=== PATIENT | male | born 1935 | race Caucasian/White ===

== ENCOUNTER 2018-07-05 07:45 | Day surgery (SDC) | payer OTHER, MEDICARE ==
[~2018-07-05] VITALS: Ht 180.3 cm; Wt 94.8 kg
[~2018-07-05 07:45] MED LIST: ALBU2.5V5 NEB; AMLO10 PO; ASPI81CH PO; ATOR10 PO; CHOL10002 PO; DOXA4 PO; HYDR1TAB94 PO; Hair, Skin & N1 EACH PO; INSULANPEN SC; LOSA25 PO; Novolog100 UNIT/2 SC; Triamcinolone A15 G2 EXT
--- NOTE | 2018-07-05 08:35 | NUR ---
Ambulatory in Day Surgery-UTILIZING A CANE. History, Chart, Medications and Allergies reviewed before start of procedure.Lungs clear T/O to Auscultation. Patient confirms NPO status and agrees with scheduled surgery. Patient reports completing Chlorhexadine shower X2 prior to admission to hospital.Surgical site prepped with 2% Chlorhexidine cloth wipe. Patient States Post-Procedure ride home has been arranged.
--- NOTE | 2018-07-05 11:06 | NUR ---
DAY SURGERY RN | CALL FROM RADIOLOGY DR. JIN STATES THAT THE MEDIPORT "LOOKS GOOD".
--- NOTE | 2018-07-05 11:39 | NUR ---
Patient up to Ambulate independently. Gait steady. Discharge instructions reviewed with patient. Patient verbalizes understanding. Copy given to patient to take home. Dressing to procedure site clean, dry, intact with no visible drainage, swelling, erythema or bruising noted. Patient States Post-Procedure ride home has been arranged. Discharged via wheelchair to private car for ride home.
== END 2018-07-05 22:44 | disposition home or self-care (01) ==
LOC: ORSCMMR 07:45 → ORD 09:45 → ORSCMMR 09:45
PROVIDERS: Surgery
PROC: 05HM33Z Insertion of Infusion Device into Right Internal Jugular Vein, Percutaneous Approach (ICD-10-PCS; principal; 2018-07-05 09:45)
PROC: B543ZZA Ultrasonography of Right Jugular Veins, Guidance (ICD-10-PCS; principal; 2018-07-05 09:45)
DX: C93.10 Chronic myelomonocytic leukemia not having achieved remission (principal); E11.22 Type 2 diabetes mellitus with diabetic chronic kidney disease; I12.9 Hypertensive chronic kidney disease with stage 1 through stage 4 chronic kidney disease, or unspecified chronic kidney disease; N18.3 Chronic kidney disease, stage 3 (moderate); Z79.4 Long term (current) use of insulin; Z79.82 Long term (current) use of aspirin; Z79.899 Other long term (current) drug therapy
CPT/HCPCS: 77001; 82947; C1788; J0690; J1642; J2405; J3010; J7120

== ENCOUNTER 2020-05-27 00:15 | Day surgery (SDC) | payer OTHER ==
[2020-05-27] MEDS ORDERED: METF500 PO (08:32)
== END 2020-05-27 10:30 | disposition home or self-care (01) ==
LOC: ATC 00:15
PROC: 30233N1 Transfusion of Nonautologous Red Blood Cells into Peripheral Vein, Percutaneous Approach (ICD-10-PCS; principal; 2020-05-27)
DX: C93.10 Chronic myelomonocytic leukemia not having achieved remission (principal); I12.9 Hypertensive chronic kidney disease with stage 1 through stage 4 chronic kidney disease, or unspecified chronic kidney disease; E11.22 Type 2 diabetes mellitus with diabetic chronic kidney disease; N18.30 Chronic kidney disease, stage 3 unspecified; D63.1 Anemia in chronic kidney disease; L40.9 Psoriasis, unspecified; E11.319 Type 2 diabetes mellitus with unspecified diabetic retinopathy without macular edema; E78.5 Hyperlipidemia, unspecified; K59.00 Constipation, unspecified; E11.42 Type 2 diabetes mellitus with diabetic polyneuropathy; Z88.6 Allergy status to analgesic agent; Z88.8 Allergy status to other drugs, medicaments and biological substances; Z87.891 Personal history of nicotine dependence; Z79.01 Long term (current) use of anticoagulants; Z79.82 Long term (current) use of aspirin; Z79.4 Long term (current) use of insulin; Z79.899 Other long term (current) drug therapy; Z86.718 Personal history of other venous thrombosis and embolism
CPT/HCPCS: 36430; 86850; 86900; 86901; 86923; J1642; J7050; P9016

== ENCOUNTER 2021-01-26 09:36 | Emergency (ER) | payer OTHER | END 2021-01-26 12:16 | disposition home or self-care (01) | LOC: ER 09:36 | DX: S01.01XA Laceration without foreign body of scalp, initial encounter (principal); E78.5 Hyperlipidemia, unspecified; I12.9 Hypertensive chronic kidney disease with stage 1 through stage 4 chronic kidney disease, or unspecified chronic kidney disease; E11.22 Type 2 diabetes mellitus with diabetic chronic kidney disease; N18.9 Chronic kidney disease, unspecified; Z88.6 Allergy status to analgesic agent; Z88.8 Allergy status to other drugs, medicaments and biological substances; Z79.4 Long term (current) use of insulin; Z79.899 Other long term (current) drug therapy; W01.10XA Fall on same level from slipping, tripping and stumbling with subsequent striking against unspecified object, initial encounter ==

== ENCOUNTER 2021-07-21 10:42 | Emergency (ER) | payer OTHER ==
[~2021-07-21] VITALS: Ht 180.3 cm; Wt 90.7 kg
[~2021-07-21 10:42] MED LIST changes: +METF500 PO
[2021-07-21 11:33] LABS: BASOPHILS ABSOLUTE AUTO 0.04 K/mm3 (0.00-0.23); BASOPHILS PERCENT AUTO 1 % (0-2); EOSINOPHILS ABSOLUTE AUTO 0.06 K/mm3 (0.00-0.68); EOSINOPHILS PERCENT AUTO 1 % (0-6); Hematocrit 31.4 % (37.0-53.0); Hemoglobin 10.2 g/dL (13.5-17.5); IMMATURE GRAN ABSOLUTE AUTO 0.03 K/mm3 (0.00-0.10); IMMATURE GRAN PERCENT AUTO 0 % (0-1); LYMPHOCYTES ABSOLUTE AUTO 0.75 K/mm3 (0.84-5.20); LYMPHOCYTES PERCENT AUTO 11 % (21-46); MONOCYTES ABSOLUTE AUTO 0.56 K/mm3 (0.16-1.47); MONOCYTES PERCENT AUTO 8 % (4-13); Mean Corpuscular HGB Conc 32.5 g/dL (31.5-36.5); Mean Corpuscular Volume 95 fL (80-100); NEUTROPHILS ABSOLUTE AUTO 5.26 K/mm3 (1.96-9.15); NEUTROPHILS PERCENT AUTO 79 % (41-73); Platelet Count 189 K/mm3 (150-400); RDW Coefficient Variation 13.5 % (11.7-14.2); RDW Standard Deviation 47.7 fL (35.1-46.3); Red Blood Cell Count 3.29 M/mm3 (4.30-5.90)
[2021-07-21 12:05] LABS: Alanine Aminotransfer (ALT/SGP <6 U/L (12-78); Albumin, Blood 2.2 g/dL (3.4-5.0); Albumin/Globulin Ratio 0.4 (0.8-1.8); Alk Phos 112 U/L (50-136); Anion Gap 5 mmol/L (6-16); Aspartate Aminotrans (AST/SGOT 16 U/L (12-37); Bilirubin, Total 0.3 mg/dL (0.1-1.0); Blood Urea Nitrogen 44 mg/dL (8-24); Bun/Creatinine Ratio 25.7 (12.0-20.0); CO2, Blood 30 mmol/L (21-32); Calcium, Blood 8.6 mg/dL (8.5-10.1); Chloride, Blood 99 mmol/L (98-108); Creatinine, Blood 1.71 mg/dL (0.60-1.20); Globulin, Blood 5.2 g/dL (2.2-4.0); Glomerular Filtration Rate 38 (60-); Glucose, Blood 289 mg/dL (70-99); Sodium, Blood 134 mmol/L (136-145); Total Protein, Blood 7.4 g/dL (6.4-8.2)
== END 2021-07-21 16:43 | disposition home or self-care (01) ==
LOC: ER 10:42
PROVIDERS: Physician Assistant
DX: R53.83 Other fatigue (principal); I12.9 Hypertensive chronic kidney disease with stage 1 through stage 4 chronic kidney disease, or unspecified chronic kidney disease; N18.9 Chronic kidney disease, unspecified; E11.9 Type 2 diabetes mellitus without complications; E78.5 Hyperlipidemia, unspecified; Z88.8 Allergy status to other drugs, medicaments and biological substances; Z88.6 Allergy status to analgesic agent; Z87.891 Personal history of nicotine dependence; Z79.4 Long term (current) use of insulin; Z79.84 Long term (current) use of oral hypoglycemic drugs; Z79.899 Other long term (current) drug therapy
CPT/HCPCS: 36415; 71046; 80053; 83605; 85025; 87040; 99284-25

== ENCOUNTER 2023-04-24 13:01 | Inpatient (IN) | payer OTHER ==
[~2023-04-24] VITALS: Ht 177.8 cm; Wt 81.5 kg
[~2023-04-24 13:01] MED LIST changes: +B-COMPLEX WITH1 EAC2 PO; +CALCIUM CARBON650 MG PO; +CENTRUM SILVER1 EAC2 PO; +Calcium Acetat667 MG PO; +ELIQUIS2.5 M1 PO; +FURO40 PO; +HYDR25SUP PR; +IPRATROPIUM BRO15 ML; +NOVOLIN N100 UNIT/2 SC; +PSYSENPA PO; +TAMS.4ER PO; +TIOT18 INH; +VITAMIN D31000 UNI1 PO
[2023-04-24 14:45] VITALS: BP 109/61
[2023-04-24] MEDS ORDERED: METO25 PO (15:28)
[2023-04-24] MEDS ORDERED: PANT40 PO (15:29)
[2023-04-24] MEDS ORDERED: B COMPLEX FORM0.4 MG PO (15:30)
[2023-04-24] MEDS ORDERED: CENTRUM SILVER1 EAC2 PO (15:31)
[2023-04-24] MEDS ORDERED: INSULANI SC (15:32)
[2023-04-24] MEDS ORDERED: NOVOLOG FL100 UNIT/3 SC (15:33)
[2023-04-24] MEDS ORDERED: ALBU8HFA2 INH (15:41)
[2023-04-24] MEDS ORDERED: AZACITIDINE (15:44)
[2023-04-24] MEDS ORDERED: IMMUNE ESSENTI PO (15:46)
[2023-04-24 19:46] VITALS: BP 117/50
--- NOTE | 2023-04-24 20:35 | NUR ---
SHIFT SUMMARY: VIKTORIA IS A&OX4. VSS, NO ACUTE EVENTS THIS SHIFT. HE IS TOLERATING PO INTAKE WELL, DENIES PAIN, AND COMPLAINS OF OVERALL MALAISE. O2 VIA NC AT 2-3 LPM. THIRD SHIFT LIEUTENANT REPORTED ST ELEVATION, DISCUSSED WITH HOSPITALIST, NO NEW ORDERS AT THIS TIME. PT IS LYING IN BED WITH THE CALL LIGHT IN REACH. REPORT WAS GIVEN TO ENGLISH TEACHER RN.
--- NOTE | 2023-04-25 01:58 | NUR ---
NOTIFIED BY SPECIAL TRACKWORK BLACKSMITH THAT PT HR DROPPED TO 38 BPM FOR 2 SECONDS AND A PAUSE.
--- NOTE | 2023-04-25 02:41 | NUR ---
NOTIFIED BY OXYGEN THERAPIST PT HR DROPPED TO 39 FOR 4 BEATS. PT ASYMPTOMATIC.
--- NOTE | 2023-04-25 04:41 | NUR ---
SHIFT SUMMARY NOC PT A/O X 4. VERY LOWER [place] WITHOUT HEARING AIDES IN. PLEASANT AND COOPERATIVE WITH CARE. NO ACUTE CHANGES TO REPORT. PT ON TELE RUNNING SINUS RHYTHM/BBB @ 77 BPM. PT HAS SUPRAPUBIC CATHETER IN PLACE PATENT AND DRAINING TO GRAVITY. PT ON 2-3L/NC MAINTAINING SPO2 > 94%. PT TROPONIN HAS BEEN TRENDING DOWNWARD. PT IS CURRENTLY RESTING WITH BED IN LOWEST POSITION, AND CALL LIGHT WITHIN REACH.
[2023-04-25 05:33] VITALS: BP 164/59
[2023-04-25 06:36] LABS: BASOPHILS ABSOLUTE AUTO 0.03 K/mm3 (0.00-0.23); BASOPHILS PERCENT AUTO 0 % (0-2); EOSINOPHILS ABSOLUTE AUTO 0.02 K/mm3 (0.00-0.68); EOSINOPHILS PERCENT AUTO 0 % (0-6); Hematocrit 38.6 % (37.0-53.0); Hemoglobin 13.2 g/dL (13.5-17.5); IMMATURE GRAN ABSOLUTE AUTO 0.12 K/mm3 (0.00-0.10); IMMATURE GRAN PERCENT AUTO 1 % (0-1); LYMPHOCYTES PERCENT AUTO 4 % (21-46); MONOCYTES ABSOLUTE AUTO 0.76 K/mm3 (0.16-1.47); MONOCYTES PERCENT AUTO 4 % (4-13); Mean Corpuscular HGB 32.5 pg (26.0-34.0); Mean Corpuscular HGB Conc 34.2 g/dL (31.5-36.5); Mean Corpuscular Volume 95 fL (80-100); Mean Platelet Volume 11.1 fL (9.1-12.4); NEUTROPHILS ABSOLUTE AUTO 15.67 K/mm3 (1.96-9.15); NEUTROPHILS PERCENT AUTO 91 % (41-73); Platelet Count 182 K/mm3 (150-400); RDW Standard Deviation 48.5 fL (35.1-46.3); Red Blood Cell Count 4.06 M/mm3 (4.30-5.90)
--- NOTE | 2023-04-25 06:44 | NUR ---
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 PT DENIES CP/DISCOMFORT/PALPITATIONS AT THIS TIME. HOSPITALIST NOTIFIED OF EKG RESULTS AND INSTRUCTIONS GIVEN TO CONTINUE PT FOR CHANGE IN CONDITION.
[2023-04-25 06:45] LABS: Albumin, Blood 2.9 g/dL (3.4-5.0); Albumin/Globulin Ratio 0.8 (0.8-1.8); Bilirubin, Total 0.3 mg/dL (0.1-1.0); Bun/Creatinine Ratio 24.4 (12.0-20.0); Calcium, Blood 8.8 mg/dL (8.5-10.1); Creatinine, Blood 1.56 mg/dL (0.60-1.20); Globulin, Blood 3.6 g/dL (2.2-4.0); Potassium, Blood 4.6 mmol/L (3.5-5.5); Total Protein, Blood 6.5 g/dL (6.4-8.2)
[2023-04-25 07:17] LABS: Albumin, Blood 2.9 g/dL (3.4-5.0); Albumin/Globulin Ratio 0.8 (0.8-1.8); Bilirubin, Total 0.4 mg/dL (0.1-1.0); Bun/Creatinine Ratio 24.7 (12.0-20.0); Calcium, Blood 8.5 mg/dL (8.5-10.1); Creatinine, Blood 1.54 mg/dL (0.60-1.20); Globulin, Blood 3.7 g/dL (2.2-4.0); Potassium, Blood 4.6 mmol/L (3.5-5.5); Total Protein, Blood 6.6 g/dL (6.4-8.2)
[2023-04-25 07:51] VITALS: BP 145/65
[2023-04-25 16:30] VITALS: BP 141/61
--- NOTE | 2023-04-25 18:37 | NUR ---
SUMMARY- PT A/O X4, USES CALL LIGHT TO MAKE NEEDS KNOWN.TOLERATING FOOD AND FLUIDS. TELE 1 DEG AVB WITH PAC/BBB, RATE 70'S. ONE EPISODE THIS AM FOR 20 SECONDS REPORTED RATE 39. BP STABLE. PT DENIES CHEST PAIN. TROPONIN TRENDING DOWN. PT IS POSITIVE FOR COVID, ON 2L NC, RESP EVEN UNLABORED. CRACKLES THROUGHTOUT LUNG FIELD. OCC COUGH. NO DYSPNES. WENT DOWN FOR P.E. STUDY TODAY. WILL REPORT TO AUGUST PAGE.
--- NOTE | 2023-04-25 18:38 | NUR ---
"Spiritual Care | Pt. Request Pt. is sitting up in bed eating dinner when he welcomes my visit. Pt. is pleasant. Facilitated a life review and considered matters of the Pts. personal ajit and belief. Pt. displayed evidence of awaareness and engagement but also was [place]. Listened with empathy, interest, and respect. Prayed for the Pt. Pt. requested access to a bible, and a NT and Psalms was provided. Pt. verbalized gratitude for the spiritual care visit, and welcomed this batch tank controller to return."
[2023-04-26 04:25] VITALS: BP 168/80
[2023-04-26 05:49] LABS: Hematocrit 28.2 % (37.0-53.0); Hemoglobin 9.2 g/dL (13.5-17.5); Mean Corpuscular HGB 32.4 pg (26.0-34.0); Mean Corpuscular HGB Conc 32.6 g/dL (31.5-36.5); Mean Corpuscular Volume 99 fL (80-100); Mean Platelet Volume 9.9 fL (9.1-12.4); Platelet Count 168 K/mm3 (150-400); RDW Coefficient Variation 13.5 % (11.7-14.2); RDW Standard Deviation 49.1 fL (35.1-46.3); Red Blood Cell Count 2.84 M/mm3 (4.30-5.90)
--- NOTE | 2023-04-26 06:23 | NUR ---
SHIFT SUMMARY PT IS ALERT AND ORIENTED TO PERSON, PLACE, TIME, AND SITUATION. PT IS PLEASANT, CALM, AND COOPERATIVE WITH CARE. PT CALLS APPROPRIATELY AND IS ABLE TO MAKE HIS NEEDS KNOWN. SUPRAPUBIC CATHETER DRESSING CHANGED-DISCHARGE ON BANDAGE IS YELLOW/GREEN IN COLOR. CATHETER CARE COMPLETED, SUPRAPUBIC CATHETER IS PATENT AND DRAINING TO GRAVITY. PT DENIES CHEST PAIN/PRESSURE/TIGHTNESS AND SOB. PT HAS SLEPT OFF AND ON T/O NIGHT WITH RESPIRATIONS EQUAL AND UNLABORED. PT REPORTS THAT HE GETS SOB AT HOME WHEN WALKING 20-25 FEET, HAS OXYGEN TANK THAT HE USES PRN AT HOME. PT RT EYE SLIGHTLY RED-COLD COMPRESS APPLIED. NO S/S OF DISTRESS NOTED. BED IS LOCKED IN THE LOWEST POSITION WITH CALL LIGHT IN REACH.
[2023-04-26 06:39] LABS: Bun/Creatinine Ratio 23.8 (12.0-20.0); Calcium, Blood 8.8 mg/dL (8.5-10.1); Creatinine, Blood 1.43 mg/dL (0.60-1.20); Potassium, Blood 4.8 mmol/L (3.5-5.5)
[2023-04-26 07:52] VITALS: BP 178/73
--- NOTE | 2023-04-26 14:48 | NUR ---
Spiritual Care Visit. Pt. is reating in bed but reesponds when I enter the room. Pt. welcomes my visit. Pt. is unsettled about a new problem with his right eye which feels swollen since he matt up. Losten with empathy and interest. Pt. requested that I pray "right now." Prayed for Pt. Followed up prayer by facilitating life stories while we re-established rapport. Pt. verbalized gratitude for the spiritual care visit.
--- NOTE | 2023-04-26 18:16 | NUR ---
SUMMARY- PT A/O X4, HAD BEEN BEDREST UNTIL TODAY. RN GOT PT UP TO CHAIR FOR BREAKFAST FOR 3 HOURS. MAX PIVOT TX TO CHAIR, POOR LE COORDINATION. TOOK OXYGEN OFF AT 1300, SATS ON ROOM AIR ONE HOUR LATER 98%. MEDICATED WITH SENEKOT AND BISACADIL TABS TO STIM BM (LAST BM 04/22)- SPOKE WITH CAREGIVERS WHO ARE ASKING IF PT CAN BE TESTED FOR COVID BEFORE SENDING HOME TO TRY TO GET NEGATIVE RESULTS. CAREGIVERS ARE CONTEMPLATING WEATHER IT MAY BE BETTER FOR PT TO GET SOME PHYSICAL THERAPY AT SNF BEFORE COMING HOME. WILL REPORT TO NOC RN.PT REFUSED TO WORK WITH PT LATER IN THE DAY STATING HE WAS TOO TIRED. R EYE IS PAINFUL, HAVING PRESURE AND REDNESS. STARTED ON ABX OPTH DROPS. ALSO HAD HEADACHE THIS PM, MEDICATED WITH TYLENOL
[2023-04-26 18:26] VITALS: BP 150/73
[2023-04-26 19:29] VITALS: BP 156/77
--- NOTE | 2023-04-26 21:15 | NUR ---
TELE CALLED REPORTING A 21 BEAT OF V-TACH-PT IS ASYMPTOMATIC, DENIES CHEST PAIN/PRESSURE/TIGHTNESS AT THIS TIME. HOSPITALIST CALLED AND NOTIFIED OF RUN OF V-TACH; STATED HE IS IN THE CHART AND WILL ADD OR CHANGES ORDERS IF HE NEEDS TO. NO CURRENT ORDERS AT THIS TIME.
[2023-04-27 03:06] VITALS: BP 155/76
--- NOTE | 2023-04-27 04:34 | NUR ---
PT IS ALERT AND ORIENTED TO PERSON, PLACE,, TIME, AND SITUATION. PT IS ABLE TO MAKE HIS NEEDS KNOWN AND CALLS APPROPRIATELY. PT REPORTS THAT HIS EYE IS BECOMING HARD TO SEE DETAILS OUT OF-RINSED EYE OUT AND APPLIED A COOL COMPRESS-PT REPORTS HIS EYE FEELS BETTER AFTER RINSE. PT SLEPT MOST OF THE SHIFT-RESPIRATIONS EQUAL AND UNLABORED, NO C/O SOB ON RA. PT DENIES CHEST PAIN/PRESSURE/TIGHTNESS. SUPRAPUBIC CATHETER BANDAGE CHANGED AND INSERTION SITE CLEANED. PT DENIES PAIN. NO S/S OF DISTRESS NOTED. BED IS LOCKED IN THE LOWEST POSITION WITH CALL LIGHT IN REACH FOR SAFETY.
[2023-04-27 05:53] LABS: BASOPHILS ABSOLUTE AUTO 0.03 K/mm3 (0.00-0.23); BASOPHILS PERCENT AUTO 1 % (0-2); EOSINOPHILS ABSOLUTE AUTO 0.18 K/mm3 (0.00-0.68); EOSINOPHILS PERCENT AUTO 4 % (0-6); Hematocrit 28.9 % (37.0-53.0); Hemoglobin 9.3 g/dL (13.5-17.5); IMMATURE GRAN ABSOLUTE AUTO 0.01 K/mm3 (0.00-0.10); IMMATURE GRAN PERCENT AUTO 0 % (0-1); LYMPHOCYTES ABSOLUTE AUTO 1.06 K/mm3 (0.84-5.20); LYMPHOCYTES PERCENT AUTO 21 % (21-46); MONOCYTES ABSOLUTE AUTO 0.63 K/mm3 (0.16-1.47); MONOCYTES PERCENT AUTO 13 % (4-13); Mean Corpuscular HGB 32.1 pg (26.0-34.0); Mean Corpuscular HGB Conc 32.2 g/dL (31.5-36.5); Mean Corpuscular Volume 100 fL (80-100); Mean Platelet Volume 9.6 fL (9.1-12.4); NEUTROPHILS ABSOLUTE AUTO 3.14 K/mm3 (1.96-9.15); NEUTROPHILS PERCENT AUTO 62 % (41-73); Platelet Count 172 K/mm3 (150-400); RDW Coefficient Variation 13.3 % (11.7-14.2); RDW Standard Deviation 48.9 fL (35.1-46.3); White Blood Cell Count 5.05 K/mm3 (4.00-11.30)
[2023-04-27 06:38] LABS: Calcium, Blood 9.2 mg/dL (8.5-10.1); Creatinine, Blood 1.11 mg/dL (0.60-1.20); Potassium, Blood 4.6 mmol/L (3.5-5.5)
[2023-04-27 07:48] VITALS: BP 151/79
[2023-04-27 17:08] VITALS: BP 156/77
--- NOTE | 2023-04-27 18:33 | NUR ---
SHIFT SUMMARY PT REPORTING TO MD ABOUT DECREASED VISION TO R EYE. CT AND OPTHAMOLOGY IN TO SEE PT WITH NO CONCERN TO KEEP PT IN HOSPITAL. WAS EVALUATED LATE IN DAY AND PT LIVES OUT OF TOWN. PLAN FOR DISCHARGE TOMORROW. SOB WITH ACTIVITY WHICH CAREGIVER REPORTS IS BASELINE FOR PT. PURVI, CAREGIVER, PHONE NUMBER , STATED IF HE DIDN'T HAVE ANY TRANSPORTATION BENEFITS AVAILABLE, HER OR ANOTHER CAREGIVER COULD PICK HIM UP TOMORROW. MD AWARE. UP TO CHAIR FOR BREAKFAST AND FOR A HALF HOUR BEFORE LUNCH. STATES THE CHAIR IS VERY UNCOMFORTABLE AND REFUSED TO GET UP FOR SUPPER.
[2023-04-27 20:41] VITALS: BP 169/79
[2023-04-28 05:11] LABS: Hematocrit 27.4 % (37.0-53.0)
--- NOTE | 2023-04-28 05:57 | NUR ---
SHIFT SUMMARY PT IS A&O4, 1 PERSON TO BSC, RA, SUPRAPUBIC CATH PATENT DRAINING TO GRAVITY, VSS, NO COMPLAINTS OF PAIN OR ACUTE OVERNIGHT EVENTS, CONTINUE POC
[2023-04-28 08:34] VITALS: BP 167/80
--- NOTE | 2023-04-28 13:01 | NUR ---
DISCHARGE SUMMARY PATIENT DISCHARGE PACKET GIVEN AND REVIEWED, QUESTIONS ANSWERED, VERBALIZED UNDERSTANDING. IV REMOVED PRIOR, NO COMPLICATIONS. BSU CATH BAG CHANGED TO LEG BAG PER REQUEST. EYE DROPS SENT WITH PATIENT. CAREGIVER TO DRIVE.
== END 2023-04-28 12:12 | disposition home or self-care (01) | DRG 177 ==
LOC: MEDS 13:01
PROVIDERS: Family Medicine; Family Medicine Adult Medicine; Student in an Organized Health Care Education/Training Program; ADMIT Family Medicine
DX: U07.1 COVID-19 (principal); J18.9 Pneumonia, unspecified organism; J96.01 Acute respiratory failure with hypoxia; I13.0 Hypertensive heart and chronic kidney disease with heart failure and stage 1 through stage 4 chronic kidney disease, or unspecified chronic kidney disease; C95.90 Leukemia, unspecified not having achieved remission; I44.1 Atrioventricular block, second degree; I50.9 Heart failure, unspecified; Z66 Do not resuscitate; N18.9 Chronic kidney disease, unspecified; I48.0 Paroxysmal atrial fibrillation; H54.7 Unspecified visual loss; E11.3591 Type 2 diabetes mellitus with proliferative diabetic retinopathy without macular edema, right eye; E11.22 Type 2 diabetes mellitus with diabetic chronic kidney disease; N40.0 Benign prostatic hyperplasia without lower urinary tract symptoms; D63.1 Anemia in chronic kidney disease; Z87.891 Personal history of nicotine dependence; Z87.19 Personal history of other diseases of the digestive system; Z79.2 Long term (current) use of antibiotics; Z79.4 Long term (current) use of insulin; Z79.01 Long term (current) use of anticoagulants; Z79.899 Other long term (current) drug therapy; Z88.8 Allergy status to other drugs, medicaments and biological substances; Z79.84 Long term (current) use of oral hypoglycemic drugs
CPT/HCPCS: 36415; 70480; 71045; 71260; 80048; 80053; 82947; 84443; 84484; 85014; 85018; 85025; 85027; 93005; 93010; 97110; 97162; 97165; 97530; A9270; J0696; J1815; J7050; Q9967

== ENCOUNTER → 2023-06-12 | Outpatient (CLI) | payer OTHER ==
[~2023-06-12] MED LIST changes: +ALBU8HFA2 INH; +AZACITIDINE; +B COMPLEX FORM0.4 MG PO; +IMMUNE ESSENTI PO; +INSULANI SC; +METO25 PO; +NOVOLOG FL100 UNIT/3 SC; +PANT40 PO
== END ==
LOC: LAB 16:00 → LAB SHORT 16:00
DX: N39.0 Urinary tract infection, site not specified (principal)
CPT/HCPCS: 87086

== ENCOUNTER → 2023-09-04 | Outpatient (CLI) | payer OTHER ==
[2023-09-04 19:46] LABS: BASOPHILS ABSOLUTE AUTO 0.06 K/mm3 (0.00-0.23); BASOPHILS PERCENT AUTO 1 % (0-2); EOSINOPHILS ABSOLUTE AUTO 0.39 K/mm3 (0.00-0.68); EOSINOPHILS PERCENT AUTO 7 % (0-6); Hematocrit 33.9 % (37.0-53.0); Hemoglobin 11.2 g/dL (13.5-17.5); IMMATURE GRAN ABSOLUTE AUTO 0.01 K/mm3 (0.00-0.10); IMMATURE GRAN PERCENT AUTO 0 % (0-1); LYMPHOCYTES ABSOLUTE AUTO 1.38 K/mm3 (0.84-5.20); LYMPHOCYTES PERCENT AUTO 24 % (21-46); MONOCYTES ABSOLUTE AUTO 0.31 K/mm3 (0.16-1.47); MONOCYTES PERCENT AUTO 5 % (4-13); Mean Corpuscular HGB 31.5 pg (26.0-34.0); Mean Corpuscular Volume 96 fL (80-100); Mean Platelet Volume 10.2 fL (9.1-12.4); NEUTROPHILS PERCENT AUTO 63 % (41-73); Platelet Count 189 K/mm3 (150-400); RDW Coefficient Variation 13.6 % (11.7-14.2); RDW Standard Deviation 48.2 fL (35.1-46.3); Red Blood Cell Count 3.55 M/mm3 (4.30-5.90); White Blood Cell Count 5.75 K/mm3 (4.00-11.30)
[2023-09-04 20:34] LABS: Bun/Creatinine Ratio 24.3 (12.0-20.0); Calcium, Blood 9.3 mg/dL (8.5-10.1); Creatinine, Blood 1.15 mg/dL (0.60-1.20); Potassium, Blood 4.6 mmol/L (3.5-5.5)
== END | disposition home or self-care (01) ==
LOC: LAB SHORT 10:35
PROVIDERS: Family Medicine
DX: N39.0 Urinary tract infection, site not specified (principal)
CPT/HCPCS: 80048; 85025

== ENCOUNTER → 2024-01-22 | Outpatient (CLI) | payer OTHER | LOC: LAB 14:57 → LAB SHORT 14:57 | DX: N39.0 Urinary tract infection, site not specified (principal) | CPT/HCPCS: 87086 ==